=== PATIENT | male | born 1955 | race Two or more races ===

== ENCOUNTER 2022-02-15 20:55 | Emergency (ER) | payer SELFPAY ==
[~2022-02-15] VITALS: Ht 165.1 cm; Wt 70.0 kg
[2022-02-15] MEDS ORDERED: HYDROmorphone HCL 2 MG/ML VL/or syr IV ONE (23:15)
[2022-02-15] MEDS ORDERED: ONDANSETRON HCL 4 MG/2 ML VIAL IV ONE (23:30)
[2022-02-16 00:31] VITALS: BP 117/74
[2022-02-16] MEDS ORDERED: IBUP800T26 PO ×2 (01:13→01:20)
== END 2022-02-16 01:27 | disposition home or self-care (01) ==
LOC: ER 20:55
DX: S43.005A Unspecified dislocation of left shoulder joint, initial encounter (principal); W01.0XXA Fall on same level from slipping, tripping and stumbling without subsequent striking against object, initial encounter; Y93.89 Activity, other specified; Y92.89 Other specified places as the place of occurrence of the external cause; Y99.8 Other external cause status
CPT/HCPCS: 23650; 73030; 96374; 96375; 99284; J1170; J2405